=== PATIENT | female | born 1930 | race Caucasian/White ===

== ENCOUNTER → 2016-09-03 | Outpatient (CLI) | payer OTHER ==
--- NOTE | 2016-09-03 16:45 | DI ---
US UP/LOW EXT VEINS U/L OR LTD,09/03/2016 2:48 PM: Clinical History: Swollen left leg. Previous Exam: None at this facility. Findings: Multiple grayscale and color Doppler sonographic images are obtained through the deep veins of the le ft lower extremity, and demonstrate complete coaptation upon graded compression throughout the deep v eins. There is a large fluid collection within the popliteal fossa containing a shadowing mass measuring 1. 4 cm in long axis. Impression: 1. No evidence of deep venous thrombosis. 2. Fluid collection within the popliteal fossa. Containing a shadowing calcification most consistent with a loose body
== END ==
LOC: RAD 14:33
PROVIDERS: ATTEND Family Medicine
DX: M79.662 Pain in left lower leg (principal)
CPT/HCPCS: 93971